=== PATIENT | female | born 1980 | race Caucasian/White ===

== ENCOUNTER 2020-01-17 22:28 | Emergency (ER) | payer OTHER, MEDICAID ==
[~2020-01-17] VITALS: Ht 172.7 cm; Wt 81.7 kg
[2020-01-17] MEDS ORDERED: KEFLEX500 M1 PO (23:11)
[2020-01-17 23:29] VITALS: BP 135/78
== END 2020-01-17 23:29 | disposition home or self-care (01) ==
LOC: M.ERS 22:28
DX: S69.82XA Other specified injuries of left wrist, hand and finger(s), initial encounter (principal); X58.XXXA Exposure to other specified factors, initial encounter; Y93.89 Activity, other specified; Y92.89 Other specified places as the place of occurrence of the external cause; Y99.8 Other external cause status

== ENCOUNTER 2020-03-21 00:01 | Emergency (ER) | payer OTHER, MEDICAID ==
[~2020-03-21] VITALS: Ht 172.7 cm; Wt 86.2 kg
[~2020-03-21 00:01] MED LIST: KEFLEX500 M1 PO
[2020-03-21] MEDS ORDERED: CLONAZEPAM 1 MG1 M1 PO (00:14)
[2020-03-21] MEDS ORDERED: RANITIDINE (00:16)
[2020-03-21 00:54] VITALS: BP 109/71
== END 2020-03-21 00:56 | disposition home or self-care (01) ==
LOC: M.ERS 00:01
DX: S60.451A Superficial foreign body of left index finger, initial encounter (principal); W45.8XXA Other foreign body or object entering through skin, initial encounter; Y93.89 Activity, other specified; Y92.89 Other specified places as the place of occurrence of the external cause; Y99.8 Other external cause status

== ENCOUNTER 2020-05-25 15:34 | Emergency (ER) | payer OTHER, MEDICAID ==
[~2020-05-25] VITALS: Ht 172.7 cm; Wt 86.2 kg
[~2020-05-25 15:34] MED LIST changes: +CLONAZEPAM 1 MG1 M1 PO; +RANITIDINE
[2020-05-25] MEDS ORDERED: FLEXERIL PO (17:06)
[2020-05-25] MEDS ORDERED: NAPROSYN500 MG PO (17:06)
[2020-05-25] MEDS ORDERED: APAP W/CODEINE1 TA2 PO (17:10)
[2020-05-25 17:16] VITALS: BP 121/77
== END 2020-05-25 17:16 | disposition home or self-care (01) ==
LOC: M.ERS 15:34
DX: S16.1XXA Strain of muscle, fascia and tendon at neck level, initial encounter (principal); R51.9 Headache, unspecified; M25.511 Pain in right shoulder; Z98.890 Other specified postprocedural states; Z90.89 Acquired absence of other organs; V89.2XXA Person injured in unspecified motor-vehicle accident, traffic, initial encounter; Y93.89 Activity, other specified; Y92.89 Other specified places as the place of occurrence of the external cause; Y99.8 Other external cause status